=== PATIENT | female | born 1955 | race Caucasian/White ===

== ENCOUNTER → 2017-01-22 | Outpatient (CLI) | payer MEDICARE ==
[~2017-01-22] MED LIST: B COMPLEX1 EACH PO; CALCIUM + VITA1 EACH PO; CELEXA20 MG PO; COREG 3.1253.125 MG PO; FOSAMAX70 MG PO; HYZAAR 100-12.1 EACH PO; MELATIN3 MG PO; PLAQUENIL200 MG PO; PRILOSEC20 MG PO; TYLENOL EXTRA500 MG PO; ULTRAM50 MG PO; VITAMIN D35000 UNI1 PO
== END | disposition disaster alternative care site (69) ==
LOC: GOPD 01-18 → GBCOE 09:27 → GOPD 10:00
PROC: 0HBT3ZX Excision of Right Breast, Percutaneous Approach, Diagnostic (ICD-10-PCS; principal; 2017-01-22)
DX: R92.1 Mammographic calcification found on diagnostic imaging of breast (principal)
CPT/HCPCS: J7050